=== PATIENT | female | born 1955 | race Caucasian/White ===

== ENCOUNTER 2022-07-06 08:20 | Outpatient (CLI) | payer MEDICARE, SELFPAY | END 2022-07-06 08:21 | disposition home or self-care (01) | LOC: NFLDREF 07-07 09:22 | PROVIDERS: PCP Nurse Practitioner Family; Referring Provider Nurse Practitioner Family; Visit Provider Nurse Practitioner Family | DX: R19.7 Diarrhea, unspecified (principal) | CPT/HCPCS: 87338; 87493; 87505 ==

== ENCOUNTER 2022-08-08 17:34 | Outpatient (REF) | payer MEDICARE, SELFPAY ==
[2022-08-10 17:10] LABS: Immunoglobulin A 288 mg/dL (68-408)
[2022-08-11 00:24] LABS: Tissue Transglut Ab IgA 2 U/mL (0-3)
== END 2022-08-08 17:35 | disposition home or self-care (01) ==
LOC: NPINS 17:34
PROVIDERS: Internal Medicine Gastroenterology; PCP Nurse Practitioner Family
DX: R19.7 Diarrhea, unspecified (principal)
CPT/HCPCS: 82784; 84439; 84443; 84481; 86364

== ENCOUNTER 2022-12-13 15:07 | Outpatient (CLI) | payer MEDICARE, SELFPAY | END 2022-12-13 15:08 | disposition home or self-care (01) | PROVIDERS: PCP Nurse Practitioner Family; Visit Provider Nurse Practitioner Family | DX: E03.9 Hypothyroidism, unspecified (principal); E87.5 Hyperkalemia; R89.9 Unspecified abnormal finding in specimens from other organs, systems and tissues; I10 Essential (primary) hypertension; R19.7 Diarrhea, unspecified; F41.9 Anxiety disorder, unspecified | CPT/HCPCS: 83880; 84443; 84481 ==

== ENCOUNTER 2023-04-19 00:13 | Emergency (ER) | payer MEDICARE, SELFPAY ==
[2023-04-19 00:23] VITALS: BP 152/110; PULSE 132; RESP 20; TEMP 36.8; O2SAT 97; BMI 33.2
--- NOTE | 2023-04-19 00:56 | CT_ITS ---
Patient: OVI LICEA Facility:?[facility] RIS Patient ID:?[id number] Site Patient ID:?[id number]. Site :?[id number] Study:?CT-Abdomen/Pelvis with 83cc [id number] contrast-04/19/2023 1:50:33 AM Ordering Physician:Su Godfrey Final Report: INDICATION: Left upper quadrant pain. History of ulcerative colitis. TECHNIQUE: CT of the abdomen and pelvis acquired with 83 cc Isovue 370 IV contrast. Coronal and sagittal reconstructions. COMPARISON: None. FINDINGS: Tiny low-attenuation lesion in the left hepatic lobe is likely a cyst. Subcentimeter enhancing focus in the superior right hepatic lobe (series 2, image 18). The gallbladder, spleen, and pancreas are negative. No biliary dilation. There is a 1.5 cm right adrenal nodule and a 1.7 cm left adrenal nodule which both measure approximately 50 HU. Portal veins appear patent. There is a 3 mm obstructing stone in the proximal left ureter with moderate left hydronephrosis, delayed nephrogram, and perinephric fat stranding (series 2 image 68). Small nonobstructing left renal calyceal stones. Normal enhancement of the right kidney. No right hydronephrosis or ureteral dilation. Subcentimeter bilateral renal hypodensities are too small to characterize. There is a 0.8 cm heterogeneous exophytic lesion arising from the upper pole of the right kidney laterally which appears to contain macroscopic fat (series 4 images 81-82). This may represent a small angiomyolipoma. Underdistended urinary bladder. Hysterectomy. Small hiatal hernia. No small bowel dilation. Large amount of gas and stool in the proximal colon. Colonic diverticulosis without evidence of diverticulitis. Negative appendix. No intraperitoneal free air or fluid. No lymphadenopathy. Aortoiliac vascular calcifications. Small fat containing umbilical hernia. The lung bases are clear. Degenerative changes of the spine. Left convex lumbar curve. Minimal retrolisthesis of L1 on L2 and L2 on L3. IMPRESSION: 1. 3 mm obstructing stone in the proximal left ureter with moderate left hydronephrosis and delayed nephrogram. 2. Indeterminate bilateral adrenal nodules. These could be further evaluated with nonemergent adrenal protocol CT or MRI. 3. Subcentimeter enhancing focus in the superior right hepatic lobe. Consider nonemergent ultrasound evaluation. 4. 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 Please note that all CT scans at this facility use dose modulation, iterative reconstruction, and/or weight-based dosing when appropriate to reduce radiation dose to as low as reasonably achievable. Dictated by Michelle Garza MD @ 04/19/2023 2:07:13 AM Signed by:?Michelle Garza MD @04/19/2023 2:07:13 AM (Electronic Signature)
[2023-04-19 01:01] LABS: Lactate* 1.2 mmol/L (0.5-1.9)
--- NOTE | 2023-04-19 01:02 | ED_ITS ---
HPI - General Adult General Chief complaint: Abdominal Pain Stated complaint: left side abdominal pain under ribs Time Seen by Provider: 04/19/23 00:30 Source: patient and family Mode of arrival: ambulatory Limitations: no limitations History of Present Illness HPI narrative: 67-year-old female presents to the emergency department for evaluation of left upper quadrant abdominal pain for the past 7 hours. Started at around 5:00 p.m., gradual onset. Pain dull and achy, worsening in nature. Accompanied by nausea and vomiting. Initially, patient tried taking Pepto-Bismol and a dose of Xanax hoping that would relax her. Unfortunately she vomited the dose up within about 10 minutes. She has continued to vomit every time she tries to drink water now. Her last bowel movement was yesterday morning, normal. She does have a history of ulcerative colitis. Reports colonoscopy last September. Started taking oral budesonide yesterday because she was starting to have some GI upset in the mornings, similar to her last flare that had improved with the use of budesonide. No history of bowel obstruction. She has had a prior hysterectomy, laparoscopic 12 years ago but no other GI surgeries. No fever. No recent bloody stools. No dysuria. No back pain. No excessive alcohol use. Did not try any pain medication prior to coming to the ED as she had been vomiting and did not think she could hold it down. No prior history of similar symptoms this intense. Past medical history notable for reactive airway disease, depression and anxiety, hypothyroidism, ulcerative colitis. Home meds albuterol p.r.n., r ecently restarted oral budesonide, losartan 50 mg at bedtime, Page thyroid 60 mg once daily and venlafaxine 150 mg once daily. Allergies are to Demerol which she states just caused nausea. Social history reviewed. ROS notable for the generalized an abdominal symptoms as described above, otherwise denies times 12 systems. Related Data Home Medications Medication Instructions Recorded Confirmed budesonide 3 mg 0 mg PO 01/24/23 02/07/23 capsule,delayed,extended release Previous Rx's Medication Instructions Recorded losartan 100 mg tablet 100 mg PO QDAY #90 tabs 12/14/22 thyroid (pork) 60 mg tablet ([employer] 60 mg PO DAILY #90 tabs 12/14/22 Thyroid) venlafaxine 75 mg capsule,extended 150 mg (2 x 75 mg) PO DAILY #180 12/14/22 release 24 hr caps alprazolam 0.5 mg tablet 0.5 mg PO QDAY PRN anxiety #10 tabs 02/05/23 albuterol sulfate 90 mcg/actuation 2 puff inhalation Q4-6H PRN 02/07/23 aerosol inhaler shortness of breath or wheezing #6.7 grams Allergies Allergy/AdvReac Type Severity Reaction Status Date / Time amantadine Allergy Unknown hyperness Verified 04/19/23 00:21 meperidine [From Demerol] Allergy Unknown Verified 04/19/23 00:21 [facility] Medical History Hyperkalemia ?E87.5 - Hyperkalemia (ICD-10) Depression ?F32.A - Depression, unspecified (ICD-10) Anxiety ?F41.9 - Anxiety disorder, unspecified (ICD-10) Hypertension ?I10 - Essential (primary) hypertension (ICD-10) Surgical History Status post total abdominal hysterectomy and bilateral salpingo-oophorectomy ?Z90.710 - Acquired absence of both cervix and uterus (ICD-10) ?Z90.722 - Acquired absence of ovaries, bilateral (ICD-10) ?Z90.79 - Acquired absence of other genital organ(s) (ICD-10) History of lumbar discectomy ?Z98.890 - Other specified postprocedural states (ICD-10) Hx of colonoscopy ?Z98.890 - Other specified postprocedural states (ICD-10) History of hysterectomy ?Z90.710 - Acquired absence of both cervix and uterus (ICD-10) Social History Smoking Status: Former smoker How often do you have a drink containing alcohol: never AUDIT-C Alcohol total score: 0 Non-prescribed substance use: denies use Little interest or pleasure in doing things: nearly every day Feeling down, depressed, or hopeless: nearly every day Exam Const: Vital Signs, click to edit/add: Vital Signs - 24 hr 04/19/23 00:23 Temperature 98.3 F Pulse Rate [Pulse Oximeter] 132 H Respiratory Rate 20 Blood Pressure [Ri ght Upper Arm] 152/110 H Pulse Oximetry 97 Oxygen Delivery Me thod Room Air Documenting provider has reviewed patient's vital signs: yes Common normals: alert Orientation/consciousness: Yes awake Other: Mild distress but cooperative. Excellent historian. HENMT: Common normals: normocephalic Head and scalp: normocephalic Face and sinus: normal facial exam Mouth: oral and palatal mucosa normal Throat: posterior oropharynx normal Eye: Common normals: conjunctivae normal General eye: normal appearance of both eyes Conjunctiva: conjunctiva(e) normal Neck & C-Spine: Common normals: full ROM and no lymphadenopathy Resp: Common normals: normal respiratory effort, no use of accessory muscles and clear to auscultation bilaterally Effort & inspection: able to speak in complete sentences Auscultation: clear to auscultation bilaterally Cardio: Common normals: regular rate, regular rhythm, S1 normal heart sound, S2 normal heart sound and no murmurs Rate: regular rate Rhythm: regular rhythm Heart sounds: S1 normal and S2 normal GI: Other: Abdomen does seem slightly distended. Bowel sounds are hypoactive throughout. She is diffusely tender throughout for me, it does not really localize in the left upper quadrant. Maybe a little more so in the epigastrium. No obvious mass. No signs of hernia. Liver and spleen do not seem enlarged. : Common normals: no CVA tenderness Bladder/kidney exam: no CVA tenderness Back & Pelvis: Common normals: no CVA tenderness Thoracic spine/upper back: normal to inspection Extremity: Common normals: normal to inspection, normal capillary refill and no pedal edema Neuro: Common normals: moves all extremities and no focal motor deficits Sensorium/orientation: awake and alert Speech: speech normal Psych: Common normals: thought process normal Activity/motor behavior: appropriate eye contact Thought process: normal thought process Insight: insight good Judgement: judgment good Skin: Common normals: no rashes or lesions noted General skin exam: no rash es or lesions noted Course Course ED Course: 5 hours of nausea and vomiting with left-sided abdominal pain and history of ulcerative colitis with some underlying history of recent early flare. Differential diagnosis includes ulcerative colitis, bowel perforation, volvulus, colitis, gastritis, pancreatitis, bowel obstruction, viral process, ischemia, among others. Recommend basic labs, CT scan of the abdomen and pelvis, 0.5 mg of Dilaudid and 1 L of normal saline with 4 mg of Zofran, await findings. Reevaluation(s) Time of Reevaluation #1: 02:20 Reevaluation #1: That a lot of help temporarily but pain returned, was given Toradol. I re- evaluate patient about 10 minutes after the Toradol and she reports the pain is doing much better. CT findings reviewed with patient, 3 mm ureteral stone noted. There is a little bit of hydronephrosis associated with this but nothing severe. Her creatinine looks good. She does white count. This could be from a lot of things. It could be from recently restarting her steroids with some marginalization. It could be from the early Crohn's flare that she is known to be experiencing. It could potentially be a sign of a urine infection. I am still waiting on her urinalysis. I will culture her urine. Patient will finish her IV fluids. She will receive a single dose of Flomax to help with spasm and ureteral dilation potentially. Counseled on drinking lots of fluids. Counseled on alarm symptoms of infection, low threshold for coming back to the ED. prescriptions for Toradol and Zofran given. Alarm symptoms reviewed. All questions answered. Time of Reevaluation #2: 03:18 Reevaluation #2: Urinalysis reviewed, not suspicious for infection. I do not think I am going to start her on empiric antibiotics. Alarm symptoms reviewed. See rationale above. Vital Signs Vital signs: Initial Vital Signs Temperature 98.3 F 04/19/23 00:23 Temperature Source Temporal Artery Scan 04/19/23 00:23 Pulse Rate 132 H 04/19/23 00:23 Pulse Rhythm Regular 04/19/23 00:23 Pulse Strength 3+ Normal 04/19/23 00:23 Respiratory Rate 20 04/19/23 00:23 Blood Pressure 152/110 H 04/19/23 00:23 Blood Pressure Mean 124 H 04/19/23 00:23 Pulse Oximetry 97 04/19/23 00:23 Oxygen Delivery Method Room Air 04/19/23 00:23 Vital Signs Temperature 98.3 F 04/19/23 00:23 Pulse Rate 132 H 04/19/23 00:23 Respiratory Rate 20 04/19/23 00:23 Blood Pressure 152/110 H 04/19/23 00:23 Pulse Oximetry 97 04/19/23 00:23 Oxygen Delivery Method Room Air 04/19/23 00:23 Temperature 98.3 F 04/19/23 00:23 Pulse Rate 132 H 04/19/23 00:23 Respiratory Rate 20 04/19/23 00:23 Blood Pressure 152/110 H 04/19/23 00:23 Pulse Oximetry 97 04/19/23 00:23 Oxygen Delivery Method Room Air 04/19/23 00:23 Medications Administered Medications: Generic Name Dose Route Start Last Admin Trade Name Freq PRN Reason Stop Dose Admin Hydrocodone Bitart/Acetaminophen 1 tab 04/19/23 02:23 04/19/23 02:32 Hydrocodone-Acetamin 5-325 Mg 1 Tab PO 04/19/23 02:24 1 tab ONCE ONE Administration Ketorolac Tromethamine 15 mg 04/19/23 01:42 04/19/23 01:45 Ketorolac 15 Mg/Ml Inj IVP 04/19/23 01:43 15 mg ONCE ONE Administration Tamsulosin HCl 0.4 mg 04/19/23 02:24 04/19/23 02:32 Tamsulosin Hcl 0.4 Mg Capsule PO 04/19/23 02:25 0.4 mg ONCE ONE Administration Discontinued Medications Generic Name Dose Route Start Last Admin Trade Name Freq PRN Reason Stop Dose Admin Hydromorphone HCl 0.5 mg 04/19/23 00:54 04/19/23 01:03 Hydromorphone 0.5 Mg/0.5 Ml Inj IVP 04/19/23 00:55 0.5 mg ONCE ONE Administration Sodium Chloride 1,000 mls @ 1,000 mls/hr 04/19/23 00:56 04/19/23 02:56 0.9 % Sodium Chloride 1000 Ml IV 04/19/23 01:55 Infused .Q1H PITA Infusion Ondansetron HCl 4 mg 04/19/23 00:54 04/19/23 01:03 Ondansetron 2 Mg/Ml Inj IVP 04/19/23 00:55 4 mg ONCE ONE Administration Medical Decision Making Lab Data Lab results reviewed: Yes I reviewed the patient's lab results Lab results narrative: White count of uncertain etiology. CRP is normal. Urinalysis is not suspicious for infection. Labs: Lab Results 04/19/23 04/19/23 Range/Units 00:50 02:59 WBC 15.93 H (4.50-11.00) K/uL RBC 4.83 (4.00-5.20) m/uL Hgb 14.2 (12.0-16.0) gm/dL Hct 43.7 (33.0-51.0) % MCV 91 (80-100) fL MCH 29 (26-34) pg MCHC 33 (32-36) gm/dL RDW Coeff of Jamie 13.0 (11.5-15.5) % Plt Count 405 (140-440) K/uL Neut % (Auto) 86.8 H (42.0-72.0) % Lymph % (Auto) 7.1 L (20-44) % [place] % (Auto) 4.3 (0.0-11.0) % Eos % (Auto) 0.1 (0.0-7.0) % Baso % (Auto) 0.3 (0.0-3.0) % Neut # (Auto) 13.80 H (1.7-7.0) K/uL Lymph # (Auto) 1.10 (0.90-2.90) K/uL [place] # (Auto) 0.70 (0.00-0.90) K/UL Eos # (Auto) 0.00 (0.00-0.50) K/uL Baso # (Auto) 0.00 (0.00-0.30) K/uL Abs Immat Gran (auto) 0.20 (0.00-0.30) K/uL Imm/Tot Granulo (auto) 1.4 % Sodium 139 (135-149) mmol/L Potassium 4.2 (3.6-5.1) mmol/L Chloride 106 (96-114) mmol/L Carbon Dioxide 27 (20-32) mmol/L Anion Gap 6 L (7-15) mEq/L BUN 23 (7-30) mg/dL Creatinine 0.8 (0.5-1.5) mg/dL Estimated Creat Clear 39.75 Estimated GFR 81 ml/min Glucose 142 H (60-115) mg/dL Lactate 1.2 (0.5-1.9) mmol/L Calcium 9.7 (8.4-10.6) mg/dL Total Bilirubin 0.7 (0.1-1.5) mg/dL AST 27 (12-35) U/L ALT 23 (4-35) U/L Alkaline Phosphatase 83 (40-150) U/L C-Reactive Protein < 0.5 L (0.5-1.0) mg/dL Total Protein 7.8 (6.0-8.3) g/dL Albumin 4.4 (3.3-5.0) g/dL Lipase 44 (23-300) U/L Urine Color Yellow (Yellow) Urine Appearance Cloudy A (Clear) Urine pH 5.5 (5.0-8.5) Ur Specific [place] 1.020 (1.000-1.030) Urine Protein 2+ A (Negative) Urine Glucose (UA) Negative (Negative) Urine Ketones 2+ A (Negative) Urine Blood 3+ A (Negative) Urine Nitrite Negative (Negative) Urine Bilirubin Negative (Negative) Urine Urobilinogen 0.2 (0.2-1.0) Ur Leukocyte Esterase Negative (Negative) Urine RBC 50-100 A (0-2) Urine WBC 5-10 A (0-5) Ur Squamous Epith Cells Few (None-Few) Urine Bacteria Moderate A (None) Imaging Data CT scan - abdomen: Attestation: I have reviewed the pertinent imaging results. My impression: Gas but no obstruction. I do not see any abscess or free air. Nonobstructing stone mid ureter left side Radiologist's impression: IMPRESSION: 1. 3 mm obstructing stone in the proximal left ureter with moderate left hydronephrosis and delayed nephrogram. 2. Indeterminate bilateral adrenal nodules. These could be further evaluated with nonemergent adrenal protocol CT or MRI. 3. Subcentimeter enhancing focus in the superior right hepatic lobe. Consider nonemergent ultrasound evaluation. 4. 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 Discharge Plan Discharge Clinical Impression: Left ureteral stone Patient Disposition: Home w/ Parent or Adult Condition: Improved Instructions: Ureteral Stones (ED) Additional Instructions: As we discussed, your white blood cell count is mildly elevated. I think this is more related to your ulcerative colitis than an infection in the urine. Nonetheless, we will culture your urine to see if there is infection. Since you do not have a fever or other symptoms of infection, it is difficult to know what to do with this information. I do worry that starting you on an antibiotic will cause even more GI upset than you are currently experiencing. This also could be an elevated white count from recently restarting your steroids, this is not an uncommon phenomenon. If you start to have fever, weakness or other symptoms of infection, please come back to the emergency department right away. Your kidney stone is 3 mm, located in the mid left abdomen. This will continue to travel to your bladder and should pass with no difficulty. Will give you a urine strainer so that you will have some idea of what you are passing. Expected to look like grainy sand. Stones often break apart before they are passed. For pain, I have given you a prescription for Toradol. That is the 2nd medicine that I gave you here in the emergency department that was more effective for you. The pain often comes in large waves. It may be difficult to eliminate this completely. Use the Toradol 1 tablet up to every 6 hours as needed for pain. You may also use Tylenol 1000 mg every 6 hours. I have given you a supply of Zofran, and anti nausea medication to use as well. It is important that you drink lots of fluids. It is okay if you do not tolerate solid food for a few days. Your given a dose of Flomax here in the emergency department to help dilate open the ureter as well and reduce spasm. The stone will likely pass within a week. The pain will likely move down more towards the pelvis in the next day or 2. Activity Level: No Restrictions Discharge Diet: Regular Prescriptions: No Action budesonide 3 mg capsule,delayed,extend.release 0 mg PO albuterol sulfate 90 mcg/actuation HFA aerosol inhaler 2 puff inhalation Q4-6H PRN (Reason: shortness of breath or wheezing) Qty: 6.7 3RF [employer] Thyroid 60 mg tablet 60 mg PO DAILY Qty: 90 3RF losartan 100 mg tablet 100 mg PO QDAY Qty: 90 3RF venlafaxine 75 mg capsule,extended release 24hr 150 mg PO DAILY Qty: 180 3RF alprazolam 0.5 mg tablet 0.5 mg PO QDAY PRN (Reason: anxiety) Qty: 10 0RF Follow Up/Referrals: Yanni Argueta, [employer] [Primary Care Provider] - Stand Alone Forms: [employer] Info Instructions
[2023-04-19 01:03] LABS: Basophils Percent Auto 0.3 % (0.0-3.0); Eosinophils Percent Auto 0.1 % (0.0-7.0); Hematocrit 43.7 % (33.0-51.0); Hemoglobin* 14.2 gm/dL (12.0-16.0); Immature Granulocytes Pct Auto 1.4 %; Lymphocytes Percent Auto 7.1 % (20-44); Mean Corpuscular HGB Conc 33 gm/dL (32-36); Mean Corpuscular Hemoglobin 29 pg (26-34); Mean Corpuscular Volume 91 fL (80-100); Monocytes Percent Auto 4.3 % (0.0-11.0); Neutrophils Percent Auto 86.8 % (42.0-72.0); Platelet Count* 405 K/uL (140-440); Red Blood Count 4.83 m/uL (4.00-5.20); White Blood Count* 15.93 K/uL (4.50-11.00)
[2023-04-19] MEDS: HYDROmorphone 0.5 mg/0.5 ml inj IVP (01:03)
[2023-04-19] MEDS: 0.9 % SODIUM CHLORIDE 1000 ml 1,000 ML IV (01:03)
[2023-04-19] MEDS: ONDANSETRON 2 MG/ML inj 4 MG IVP (01:03)
[2023-04-19 01:05] LABS: Slide Review Reflex No
[2023-04-19 01:08] LABS: Albumin* 4.4 g/dL (3.3-5.0); Chloride* 106 mmol/L (96-114)
[2023-04-19 01:09] LABS: Potassium* 4.2 mmol/L (3.6-5.1); Sodium* 139 mmol/L (135-149)
[2023-04-19 01:11] LABS: Creatinine* 0.8 mg/dL (0.5-1.5); Est. Creatinine Clearance* 39.75; Estimated Glomerular Filt Rate 81 ml/min
[2023-04-19 01:12] LABS: Alanine Aminotransferase* 23 U/L (4-35); Alkaline Phosphatase* 83 U/L (40-150); Anion Gap 6 mEq/L (7-15); Aspartate Amino Transferase* 27 U/L (12-35); Bilirubin Total* 0.7 mg/dL (0.1-1.5); Blood Urea Nitrogen* 23 mg/dL (7-30); Calcium* 9.7 mg/dL (8.4-10.6); Carbon Dioxide* 27 mmol/L (20-32); Glucose* 142 mg/dL (60-115); Lipase* 44 U/L (23-300); Total Protein* 7.8 g/dL (6.0-8.3)
[2023-04-19 01:15] LABS: C Reactive Protein* < 0.5 mg/dL (0.5-1.0)
[2023-04-19] MEDS: KETOROLAC 15 MG/ML inj IVP (01:45)
[2023-04-19] MEDS: HYDROCODONE-ACETAMIN 5-325 MG 1 TAB PO (02:32)
[2023-04-19] MEDS: TAMSULOSIN HCL 0.4 MG CAPSULE PO (02:32)
[2023-04-19 03:06] LABS: Appearance Urine Cloudy (Clear); Bilirubin Urine Negative (Negative); Blood Urine 3+ (Negative); Color Urine Yellow (Yellow); Glucose Urine Negative (Negative); Ketones Urine 2+ (Negative); Leukocyte Esterase Urine Negative (Negative); Nitrite Urine Negative (Negative); Protein Urine 2+ (Negative); Urobilinogen Urine 0.2 (0.2-1.0); pH Urine 5.5 (5.0-8.5)
[2023-04-19 03:15] LABS: Bacteria Urine Moderate; RBC Urine 50-100 (0-2); Squamous Epithelial Cell Urine Few (None-Few)
== END 2023-04-19 03:27 | disposition home or self-care (01) ==
PROVIDERS: Emergency Provider Family Medicine; PCP Nurse Practitioner Family
DX: N20.1 Calculus of ureter (principal)
CPT/HCPCS: 36415; 74177; 80053; 81001; 81003; 83605; 83690; 85025; 86140; 87086; 96361; 96374; 96375; 99284; 99285; A9270; J1170; J1885; J2405; J7030; Q9967

== ENCOUNTER 2023-06-06 12:24 | Outpatient (CLI) | payer MEDICARE, SELFPAY ==
--- OUTSIDE RECORDS SUMMARY | 2023-06-06 12:30 | XMS_ITS | Clinical Summary ---
Author Name Unknown Organization [employer] [facility] Address [place], [place] [address] Care Team Providers Care Pace Analyst Name Role Phone Pcp, No Primary Care Provider Unavailabl e Allergies Active Allergy Reactions Criticality Noted Date Comments Meperidine Vomiting 01/30/2019 Latex Rash 05/04/2020 Medications Medication Sig Dispensed Refills Start Date End Date Status azelaic acid (FINACEA) 15 % topical gelIndications:Rosace a Apply topically to affected area(s) 2 times daily. 50 g 2 06/30/2020 Active clindamycin 1% (CLEOCIN-T) 1 % lotionIndications:Ros acea Apply topically to affected area(s) 2 times daily. 1 Bottle 06/30/2020 Active thyroid (CHEMICAL DEPENDENCY COUNSELOR Thyroid) 60 mg tabletIndications:Hyp othyroidism, unspecified type Take 1 Tablet (60 mg) by mouth once daily. 90 Tablet 05/02/2022 Active ALPRAZolam (XANAX) 0.25 mg tabletIndications:Anx iety TAKE 1 TABLET(0.25 MG) BY MOUTH EVERY 8 HOURS NEEDED FOR ANXIETY 10 Tablet 06/05/2022 Active ondansetron (ZOFRAN ODT) 4 mg disintegrating tabletIndications:[place] [address] 1 Tablet (4 mg) on the tongue every 8 hours if needed for Nausea/Vomiting. 15 Tablet 06/07/2022 Active busPIRone (BUSPAR) 5 mg tabletIndications:Anx iety Take 1 Tablet (5 mg) by mouth two times daily. May increase the dose to 10 mg twice daily after one week if tolerated. 120 Tablet 2 06/14/2022 Active venlafaxine (EFFEXOR XR) 75 mg cp24 Extended-Release capsuleIndications:An xiety,Depression, recurrent (HC) TAKE 1 CAPSULE BY MOUTH ONCE DAILY WITH A MEAL. DOSE DECREASE 06/15/22 90 Capsule 11/02/2022 Active Active Problems Problem Noted Date Diagnosed Date Depression, recurrent 01/30/2019 Hypothyroidism HTN (hypertension) Immunizations Name Administration Dates Next Due Tdap 12/15/2019,02/11/2010 Family History Medical History Relation Name Comments Atrial fibrillation Brother Stroke Father Atrial fibrillation Mother COPD Mother Heart failure Mother Thyroid Disease Mother Cancer-breast Paternal Grandmother Good Health Sister Relation Name Status Comments Brother Alive Father Mother Paternal Grandmother Sister Alive Social History Tobacco Use Types Packs/Day Years Used Date Smoking Tobacco: Former Cigarettes Q uit: 01/30/2013 Smokeless Tobacco: Never Tobacco Cessation:Counseling Given: Yes Alcohol Use Standard Drinks/Week Comments Yes 0 (1 standard drink = 0.6 oz pur e alcohol) PHQ-2 Answer Date Recorded PHQ-2 TOTAL SCORE 4 06/14/2022 Social Connections Answer Date Recorded Frequency of Communication with Friends and Fami ly 0 06/07/2022 Financial Resource Strain Answer Date R ecorded Difficulty of Paying Living Expenses 3 06/07/2022 Difficulty of Paying Living Expenses Not on file 06/07/2022 Food Insecurity Answer Date Recorded Worried About Running Out of Food in the Last Ye ar 1 06/07/2022 Transportation Needs Answer Date Record ed Lack of Transportation (Medical) 1 06/07/2022 Housing Stability Answer Date Recorded Unable to Pay for Housing in the Last Year 1 06/07/2022 Sex and Gender Information Value Date Recorded Sex Assigned at Female 10/03/2019 12:45 PM CDT Gender Identity Female 10/03/2019 12:45 PM CDT Sexual Orientation Straight 10/03/2019 12 :45 PM CDT Obstetrics History Para Term AB IAB SAB Ectopic Multiple Livin g Live Births 0 0 0 0 0 0 0 0 0 0 0 Last Filed Vital Signs Vital Sign Reading Time Taken Comments Blood Pressure 135/85 06/14/2022 12:05 PM CDT Pulse 91 06/14/2022 12:05 PM CDT Temperature 36.8 ??C (98.2 ??F) 06/07/2022 12:11 PM C DT Respiratory Rate 20 06/07/2022 12:11 PM CDT Oxygen Saturation 96% 06/14/2022 12:05 PM CDT Inhaled Oxygen Concentration - - Weight 75.3 kg (166 lb) 06/14/2022 12:05 PM CDT Height 150.7 cm (4' 11.33) 06/14/2022 12:05 PM CDT Body Mass Index 33.15 06/14/2022 12:05 PM CDT Plan of Treatment Health Maintenance Due Date Last Done Comments Zoster (shingles) series for age 50+ (1 of 2) 2006 Mammogram for age 45-75 02/20/2020 02/19/2019 DEXA/DXA scan for age 65+ 2021 Pneumococcal series for age 65+ (1 of 1 - PCV) 2021 COVID-19 vaccine series ( - 2022- season) 2022 Medicare Wellness for age 65+ 11/29/2022 11/28/2021 BMI (ht and wt on same day) for age 18+ 06/15/2023 06/14/2022, 11/28/2021, 04/18/2021, Additional history exists Depression screening for age 12+ 06/15/2023 06/14/2022, 11/28/2021, 04/18/2021, Additional history exists Influenza for age 65+ 10/13/2023 Lipids for age 45-75 11/28/2026 11/28/2021, 04/18/2021, 12/15/2019, Additional history exists Colonoscopy through age 75 02/11/202702/11 [facility] Tetanus booster 12/14/2029 12/15/2019, 02/11/2010 Hepatitis C screening for ag e 18-79 Completed 01/30/2019 Tdap Completed 12/15/2019, 02/11/2010 Procedures Procedure Name Priority Date/Time Associated Diagnosis Comments LIPID PANEL W REFLEX MEASURED LDL Routine 11/28/2021 11:10 AM CDT Screening for lipid disorders XR MAMMO PINEDA BILAT SCREEN Routine 02/19/2019 9:54 AM TRAFFIC SIGN ERECTION SUPERVISOR Visit for screening mammogram ANTI HCV Routine 01/30/2019 9:06 AM TRAFFIC SIGN ERECTION SUPERVISOR Need for hepatitis C screening test from Last 3 Months or Most Recently Relevant to Health Maintenance Results * (ABNORMAL) LIPID PANEL W REFLEX MEASURED LDL (11/28/2021 11:10 AM CDT) CHOLESTEROL,TOTAL 255(H) 100 - 199 mg/dL 11/29/2021 5:25 AM CDT [facility] TRIGLYCERIDES 113 <150 mg/dL 11/29/2021 5:25 AM CDT [facility] HDL CHOLESTEROL 52 >40 mg/dL 5:25 AM CDT [facility] NON-HDL CHOLESTEROL 203(H) <145 mg/dl 11/29/2021 5:25 AM CDT [facility] CHOL/HDL RATIO 4.90(H) <4.50 11/29/2021 5:25 AM CDT [facility] LDL CHOLESTEROL 180(H) <=130 mg/dL 11/29/2021 5:25 AM CDT [facility] VLDL CHOLESTEROL 23 <=30 mg/dL 11/29/2021 5:25 AM CDT [facility] PROVIDER ORDERED STATUS RANDOM 11/29/2021 5:25 AM CDT [facility] Blood BLOOD SPECIMEN / Unknown Venipuncture / Unknown 11/28/2021 11:10 AM CDT 11/28/2021 11:10 AM CDT Ruba DAVIS CHEMISTRY [facility] [address] [place] [address], [place] * XR MAMMO PINEDA BILAT SCREEN (02/19/2019 9:54 AM TRAFFIC SIGN ERECTION SUPERVISOR) Anatomical Region Laterality Modality BREASTS, Breast Left, Breast Right Bilateral Mammography Impressions 03/10/2019 1:18 PM TRAFFIC SIGN ERECTION SUPERVISOR ??There is no radiographic evidence for malignancy. ??Recommend annual mammograms. A lay language report of this examination will be provided to the patient. MAMMOGRAM ASSESSMENT: ??ACR 2 Benign Narrative 03/10/2019 1:18 PM TRAFFIC SIGN ERECTION SUPERVISOR XR MAMMO PINEDA BILAT SCREEN [[id number]] CLINICAL HISTORY: ??This is an asymptomatic 63 y.o. patient. INDICATION FOR EXAM: Mammogram Screening. TECHNIQUE: CC & MLO views were obtained. ??This digital study was evaluated with the assistance of Computer-Aided Detection. Breast Tomosynthesis was used in interpretation. COMPARISON FILMS: Previous outside mammograms from [facility] in [place], [place] Dated 01/21/2015, 01/01/2014, 01/01/2012, 07/13/2010, 07/08/2007. FINDINGS: ??Mammographically, the breast tissue has scattered fibroglandular densities. ??No suspicious masses or microcalcifications. ?? Benign appearing calcifications within both breasts and Intramammary lymph node within left breast. Ruba DAVIS MAMMO * ANTI HCV (01/30/2019 9:06 AM TRAFFIC SIGN ERECTION SUPERVISOR) HEPATITIS C ANTIBODY Non-React da Non-React da 01/30/2019 2:10 PM TRAFFIC SIGN ERECTION SUPERVISOR [facility] Comment:Antibodies to HCV no t detected; does not exclude the possibility of exposure to HCV. Blood BLOOD SPECIMEN / Unknown Venipuncture / Unknown 01/30/2019 9:06 AM TRAFFIC SIGN ERECTION SUPERVISOR 01/30/2019 9:06 AM TRAFFIC SIGN ERECTION SUPERVISOR Ruba DAVIS SEND OUTS [facility] [address] [place] [address], from Last 3 Months or Most Recently Relevant to Health Maintenance Care Teams Pace Analyst Relationship Specialty Start Date End Date Pcp, No . PCP - General 01/02/23
== END 2023-06-06 12:25 | disposition home or self-care (01) ==
PROVIDERS: PCP Nurse Practitioner Family; Visit Provider Nurse Practitioner Family
DX: E03.9 Hypothyroidism, unspecified (principal)
CPT/HCPCS: 84439; 84443; 84481

== ENCOUNTER 2024-03-06 10:25 | Emergency (ER) | payer MEDICARE, SELFPAY ==
[2024-03-06 10:41] VITALS: BP 138/83; PULSE 92; RESP 20; TEMP 36.1; O2SAT 95; BMI 34.2
--- NOTE | 2024-03-06 10:45 | CRLHL7_ITS ---
For Patients: As a result of the Cures Act, medical imaging exams and procedure reports are released immediately into your electronic medical record. You may view this report before your referring provider. If you have questions, please contact your health care provider. Indication: Shortness of breath, cough and fever Comparison: Two-view chest August 26, 2018 Technique: PA and lateral views of the chest Findings: There is chronic interstitial change again seen throughout the bilateral hemithoraces. Stable calcified granuloma in the middle lobe. No dense consolidation, effusion or pneumothorax. The cardiomediastinal silhouette is within normal limits. The bony thorax is grossly intact. Impression: Stable chronic interstitial changes without evidence of dense consolidation. Dictated by Navid Bach MD @ 03/06/2024 11:14:51 AM (Electronically Signed)
[2024-03-06 12:24] LABS: Basophils Absolute Auto 0.02 K/uL (0.00-0.30); Basophils Percent Auto 0.4 % (0.0-3.0); Eosinophils Absolute Auto 0.04 K/uL (0.00-0.50); Eosinophils Percent Auto 0.8 % (0.0-7.0); Hematocrit 47.4 % (33.0-51.0); Hemoglobin* 15.2 gm/dL (12.0-16.0); Lymphocytes Absolute Auto 1.56 K/uL (0.90-2.90); Lymphocytes Percent Auto 31.1 % (20-44); Mean Corpuscular HGB Conc 32 gm/dL (32-36); Mean Corpuscular Hemoglobin 30 pg (26-34); Mean Corpuscular Volume 92 fL (80-100); Neutrophils Absolute Auto 3.04 K/uL (1.7-7.0); Neutrophils Percent Auto 60.7 % (42.0-72.0); Platelet Count* 232 K/uL (140-440); RDW Coefficient of Variation % 13.2 % (11.5-15.5); Red Blood Count 5.16 m/uL (4.00-5.20); White Blood Count* 5.01 K/uL (4.50-11.00)
[2024-03-06 12:31] LABS: Slide Review Reflex No
--- OUTSIDE RECORDS SUMMARY | 2024-03-06 12:37 | XMS_ITS | Clinical Summary ---
Author Organization [employer] [facility] [employer] [facility] Address [place], [place] [address] Care Team Providers Care Filtration Supervisor Name Role Phone Pcp, No Primary Care Provider Unavailabl e Allergies Active Allergy Reactions Criticality Noted Date Comments Meperidine Vomiting 01/30/2019 Hydromorphone Headache 08/14/2023 Made me feel awful Latex Rash 05/04/2020 Medications azelaic acid (FINACEA) 15 % topical gelIndications:R osacea Apply topically to affected area(s) 2 times daily. 50 g 2 1 Active clindamycin 1% (CLEOCIN-T) 1 % lotionIndication s:Rosacea Apply topically to affected area(s) 2 times daily. 1 Bottle 1 Active thyroid (PROCESS EXPERT Thyroid) 60 mg tabletIndication s:Hypothyroidism , unspecified type Take 1 Tablet (60 mg) by mouth once daily. 90 Tablet 3 Active ALPRAZolam (XANAX) 0.25 mg tabletIndication s:Anxiety TAKE 1 TABLET(0.25 MG) BY MOUTH EVERY 8 HOURS NEEDED FOR ANXIETY 10 Tablet 3 Active Additional Information Patient taking differently: 0.5 mgOralEACH TIME PRN, Reported on 08/14/2023 venlafaxine (EFFEXOR XR) 75 mg cp24 Extended-Release capsuleIndicatio ns:Anxiety,Depre ssion, recurrent (HC) TAKE 1 CAPSULE BY MOUTH ONCE DAILY WITH A MEAL. DOSE DECREASE 06/15/22 90 Capsule 3 Active Additional Information Patient taking differently: 150 mgOralDAILY WITH MEAL, Reported on 08/14/2023 medication order composer Issa Vitamin C (as ascorbic acid) 1,000 mg with Shannan Hips 4:1 15 mg - 1 daily Luis Manuel Vitamin D3 (as cholecalciferol ) 5,000 IU - 1 daily Luis Manuel Triple Magnesium Complex (magnesium oxide, magnesium citrate, magnesium aspartate - 1 daily 4 Active budesonide (ENTOCORT EC) 3 mg capsule Take 3 mg by mouth. Every other day 4 Active progesterone micronized (PROMETRIUM) 100 mg capsule Take 100 mg by mouth at bedtime. 4 Active losartan (COZAAR) 100 mg tablet Take 100 mg by mouth once daily. Active estradiol 0.025 mg/24 hr SEMIWEEKLY patchIndications :Menopause syndrome Apply 1 Patch on dry, clean, hairless skin every Saturday and . 8 Patch 11 4 Active thyroid, pork, (PROCESS EXPERT Thyroid) 15 mg tabletIndication s:Hypothyroidism , unspecified type Take 1 Tablet (15 mg) by mouth once daily. 60 Tablet 2 4 Active Active Problems Problem Noted Date Diagnosed Date Menopausal state 12/10/2023 Anxiety 08/14/2023 Depression, recurrent 01/30/2019 Hypothyroidism HTN (hypertension) Encounters Date Type Department Care Team Description 12/25/2023 9:30 AM DESKTOP SUPPORT ENGINEER Orders Only [facility] [address] [place] [address] Lab, [place] Lab 12/25/2023 Travel 12/20/2023 Travel 12/09/2023 Telephone [facility] [address] [place] [address] [address] [place] [address] Sven Peck MD Lab (ORDERS) from Last 3 Months Immunizations Name Administration Dates Next Due Tdap [...] 01/30/2013 Smokeless Tobacco: Never Tobacco Cessation:Counseling Given: Not Answered Alcohol Use Standard Drinks/Week Comments Yes 0 (1 standard drink = 0.6 oz pur e alcohol) rarely PHQ-2 Answer Date Recorded PHQ-2 TOTAL SCORE 4 06/14/2022 Social Connections Answer Date Recorded Do you often feel lonely or isolated from those around you? 4 08/10/2023 Financial Resource Strain Answer Date R ecorded Difficulty of Paying Living Expenses 3 08/10/2023 Difficulty of Paying Living Expenses Not on file 08/10/2023 Food Insecurity Answer Date Recorded Do you worry your food will run out before you are able to buy more? 1 08/10/2023 Transportation Needs Answer Date Record ed Does lack of transportation keep you from medica l appointments? 1 08/10/2023 Does lack of transportation keep you from work, meetings or getting things that you need? 1 08/10/2023 Housing Stability Answer Date Recorded What is your housing situation today? 1 08/10/2023 Utilities Answer Date Recorded Do you have trouble paying f or utilities (for example, heat, electricity, water, phone)? 1 08/10/2023 Comments No Sex and Gender Information Value Date Recorded Sex Assigned at Female 10/03/2019 12:45 PM CDT Legal Sex Female 3:19 PM CDT Gender Identity Female 10/03/2019 12:45 [...] 91 06/14/2022 12:05 PM CDT Temperature 36.8 C (98.2 F) 06/07/2022 12:11 PM CDT Respiratory Rate 20 06/07/2022 12:11 PM CDT Oxygen Saturation 96% 06/14/2022 12:05 PM CDT Inhaled Oxygen Concentration - - Weight 75.3 kg (166 lb) 06/14/2022 12:05 PM CDT Height 150.7 cm (4' 11.33) 06/14/2022 12:05 PM CDT Body Mass Index 33.15 06/14/2022 12:05 PM CDT Plan of Treatment Health Maintenance Due Date Last Done Comments Pneumococcal series for age 50+ (1 of 1 - PCV) 2006 Zoster (shingles) series for age 50+ (1 of 2) 2006 Mammogram for age 45-75 02/20/2020 02/19/2019 DEXA/DXA scan for age 65+ 2021 Medicare Wellness for age 65+ 11/29/2022 11/28/2021 BMI (ht and wt on same day) for age 18+ 06/15/2023 06/14/2022, 11/28/2021, 04/18/2021, Additional history exists Depression screening for age 12+ 06/15/2023 06/14/2022, 11/28/2021, 04/18/2021, Additional history exists COVID-19 vaccine series ( - season) 2023 Influenza for age 65+ 10/13/2023 Lipids for age 45-75 11/28/2026 11/28/2021, 04/18/2021, 12/15/2019, Additional history exists Colonoscopy through age 75 02/11/202702/11 [facility] Tetanus booster 12/14/2029 12/15/2019, 02/11/2010 RSV vaccine for adults or (1 - 1-dose 75+ series) 11/13/2031 Hepatitis C screening for ag e 18-79 Completed 01/30/2019 Tdap Completed 12/15/2019, 02/11/2010 Procedures Procedure Name Priority Date/Time Associated Diagnosis Comments TSH Routine 12/25/2023 9:28 AM DESKTOP SUPPORT ENGINEER T4,FREE Routine 12/25/2023 9:28 AM DESKTOP SUPPORT ENGINEER Hypothyroidism, unspecified type T3,FREE Routine 12/25/2023 9:28 AM DESKTOP SUPPORT ENGINEER Hypothyroidism, unspecified type PROGESTERONE Routine 12/25/2023 9:28 AM DESKTOP SUPPORT ENGINEER Menopausal state ESTRADIOL Routine 12/25/2023 9:28 AM DESKTOP SUPPORT ENGINEER Menopausal state VITAMIN D 25 (DEFICIENCY) Routine 12/25/2023 9:28 AM DESKTOP SUPPORT ENGINEER Vitamin D deficiency LIPID PANEL W REFLEX MEASURED LDL Routine 11/28/2021 11:10 AM CDT Screening for lipid disorders XR MAMMO PINEDA BILAT SCREEN Routine 02/19/2019 9:54 AM DESKTOP SUPPORT ENGINEER Visit for screening mammogram ANTI HCV Routine 01/30/2019 9:06 AM DESKTOP SUPPORT ENGINEER Need for hepatitis C screening test from Last 3 Months or Most Recently Relevant to Health Maintenance Results * VITAMIN D 25 (DEFICIENCY) (12/25/2023 9:28 AM DESKTOP SUPPORT ENGINEER) VITAMIN D,25-OH,TOTAL,IA 76 30 - 100 ng/mL [facility] Comment: Vitamin D Status 25-OH Vitamin D: Deficiency: <20 ng/mL Insufficiency: 20 - 29 ng/mL Optimal: > or = 30 ng/mL For 25-OH Vitamin D testing on patients on D2-supplementation and patients for whom quantitation of D2 and D3 fractions is required, the Quest[facility](TM) 25-OH VIT D, (D2,D3), LC/MS/MS is recommended: order code [id number] (patients >2yrs). See Note 1 Note 1 For additional information, please refer to http://education.Toodalu/faq/UQE603 (This link is being provided for informational/ educational purposes only.) Blood BLOOD SPECIMEN / Unknown 12/25/2023 9:28 AM DESKTOP SUPPORT ENGINEER 12/25/2023 9:29 AM DESKTOP SUPPORT ENGINEER Narrative [facility] - 12/26/2023 4:05 AM DESKTOP SUPPORT ENGINEER FASTING:NO FASTING: NO us Sven Peck MD SEND OUTS Final R esult [employer] [address] [place] [address], [facility] [address] [place] [address] * (ABNORMAL) TSH (12/25/2023 9:28 AM DESKTOP SUPPORT ENGINEER) TSH 0.33(L) 0.40 - 4.50 mIU/L [facility] 12/25/2023 9:28 AM DESKTOP SUPPORT ENGINEER 12/25/2023 9:29 AM DESKTOP SUPPORT ENGINEER Narrative [facility] - 12/26/2023 4:05 AM DESKTOP SUPPORT ENGINEER FASTING:NO FASTING: NO Sven Peck MD CHEMISTRY Final R esult [facility] [address] [facility] [place] [address], [facility] [address] [place] [address] * T3,FREE (12/25/2023 9:28 AM DESKTOP SUPPORT ENGINEER) T3, FREE 2.8 2.3 - 4.2 pg/mL [facility] Blood BLOOD SPECIMEN / Unknown 12/25/2023 9:28 AM DESKTOP SUPPORT ENGINEER 12/25/2023 9:29 AM DESKTOP SUPPORT ENGINEER Narrative [facility] - 12/26/2023 4:05 AM DESKTOP SUPPORT ENGINEER FASTING:NO FASTING: NO Sven Peck MD CHEMISTRY Final R esult [facility] [address] [place] [address], [facility] [address] [place] [address] * T4,FREE (12/25/2023 9:28 AM DESKTOP SUPPORT ENGINEER) T4, FREE 0.8 0.8 - 1.8 ng/dL [facility] Blood BLOOD SPECIMEN / Unknown 12/25/2023 9:28 AM DESKTOP SUPPORT ENGINEER 12/25/2023 9:29 AM DESKTOP SUPPORT ENGINEER Narrative [facility] - 12/26/2023 4:05 AM DESKTOP SUPPORT ENGINEER FASTING:NO FASTING: NO Sven Peck MD CHEMISTRY Final R esult Performing Organization Address [facility] Co de Phone Number [employer] [facility] [address] [place] [address], [facility] [address] [place] [address] * PROGESTERONE (12/25/2023 9:28 AM DESKTOP SUPPORT ENGINEER) Pathologist [facility] PROGESTERONE 6.1 ng/mL [facility] Comment: Reference Ranges Female Follicular Phase < 1.0 Luteal Phase 2.6-21.5 Post menopausal < 0.5 1st Trimester 4.1-34.0 2nd Trimester 24.0-76.0 3rd Trimester 52.0-302.0 Blood BLOOD SPECIMEN / Unknown 12/25/2023 9:28 AM DESKTOP SUPPORT ENGINEER 12/25/2023 9:29 AM DESKTOP SUPPORT ENGINEER Narrative [facility] - 12/26/2023 4:05 AM DESKTOP SUPPORT ENGINEER FASTING:NO FASTING: NO Sven Peck MD SEND OUTS Final R esult Performing Organization Address [facility] Co de Phone Number [employer] [facility] [address] [place] [address], [facility] [address] [place] [address] * ESTRADIOL (12/25/2023 9:28 AM DESKTOP SUPPORT ENGINEER) Pathologist [facility] ESTRADIOL 27 pg/mL [facility] Comment: Reference Range Follicular Phase: 19-144 Mid-Cycle: 64-357 Luteal Phase: 56-214 Postmenopausal: < or = 31 Reference range established on post-pubertal patient population. No pre-pubertal reference range established using this assay. For any patients for whom low Estradiol levels are anticipated (e.g. males, pre-pubertal children and hypogonadal/post-menopausal females), the [facility] Estradiol, Ultrasensitive, LCMSMS assay is recommended (order code [id number]). Please note: patients being treated with the drug fulvestrant (Faslodex(R)) have demonstrated significant interference in immunoassay methods for estradiol measurement. The cross reactivity could lead to falsely elevated estradiol test results leading to an inappropriate clinical assessment of estrogen status. [facility] order code [id number], Ultrasensitive LC/MS/MS demonstrates negligible cross reactivity with fulvestrant. Blood BLOOD SPECIMEN / Unknown 12/25/2023 9:28 AM DESKTOP SUPPORT ENGINEER 12/25/2023 9:29 AM DESKTOP SUPPORT ENGINEER Narrative [facility] - 12/26/2023 4:05 AM DESKTOP SUPPORT ENGINEER FASTING:NO FASTING: NO Sven Peck MD SEND OUTS Final R esult [employer] [facility] [address] [place] [address], [facility] [address] [place] [address] * (ABNORMAL) LIPID PANEL W REFLEX MEASURED LDL (11/28/2021 11:10 AM CDT) CHOLESTEROL,TOTAL 255(H) 100 - 199 mg/dL 11/29/2021 5:25 AM CDT [facility] TRIGLYCERIDES 113 <150 mg/dL 11/29/2021 5:25 AM CDT [facility] HDL CHOLESTEROL 52 >40 mg/dL 5:25 AM T [facility] NON-HDL CHOLESTEROL 203(H) <145 mg/dl 11/29/2021 5:25 AM CDT [facility] CHOL/HDL RATIO 4.90(H) <4.50 11/29/2021 5:25 AM CDT [facility] LDL CHOLESTEROL 180(H) <=130 mg/dL 11/29/2021 5:25 AM CDT [facility] VLDL CHOLESTEROL 23 <=30 mg/dL 11/29/2021 5:25 AM CDT [facility] PROVIDER ORDERED STATUS RANDOM 11/29/2021 5:25 AM CDT [facility] Blood BLOOD SPECIMEN / Unknown Venipuncture / Unknown 11/28/2021 11:10 AM CDT 11/28/2021 11:10 AM CDT Ruba DAVIS CHEMISTRY [facility] [address] [place] [address], [place] * XR MAMMO PINEDA BILAT SCREEN (02/19/2019 9:54 AM DESKTOP SUPPORT ENGINEER) Anatomical Region Laterality Modality BREASTS, Breast Left, Breast Right Bilateral Mammography Impressions 03/10/2019 1:18 PM DESKTOP SUPPORT ENGINEER There is no radiographic evidence for malignancy. Recommend annual mammograms. A lay language report of this examination will be provided to the patient. MAMMOGRAM ASSESSMENT: ACR 2 Benign Narrative 03/10/2019 1:18 PM DESKTOP SUPPORT ENGINEER XR MAMMO PINEDA BILAT SCREEN [[id number]] CLINICAL HISTORY: This is an asymptomatic 63 y.o. patient. INDICATION FOR EXAM: Mammogram Screening. TECHNIQUE: CC & MLO views were obtained. This digital study was evaluated with the assistance of Computer-Aided Detection. Breast Tomosynthesis was used in interpretation. COMPARISON FILMS: Previous outside mammograms from [facility] in [place], [place] Dated 01/21/2015, 01/01/2014, 01/01/2012, 07/13/2010, 07/08/2007. FINDINGS: Mammographically, the breast tissue has scattered fibroglandular densities. No suspicious masses or microcalcifications. Benign appearing calcifications within both breasts and Intramammary lymph node within left breast. Ruba DAVIS MAMMO Final Resu lt * ANTI HCV (01/30/2019 9:06 AM DESKTOP SUPPORT ENGINEER) HEPATITIS C ANTIBODY Non-React da Non-React da 01/30/2019 2:10 PM DESKTOP SUPPORT ENGINEER [facility] Comment:Antibodies to HCV no t detected; does not exclude the possibility of exposure to HCV. Blood BLOOD SPECIMEN / Unknown Venipuncture / Unknown 01/30/2019 9:06 AM DESKTOP SUPPORT ENGINEER 01/30/2019 9:06 AM DESKTOP SUPPORT ENGINEER us Ruba DAVIS SEND OUTS Final Resu lt [facility] [address] [place] [address], [place] from Last 3 Months or Most Recently Relevant to Health Maintenance Insurance [facility] MEDICARE ADVANTAGE MR Care Teams Filtration Supervisor Relationship Specialty Start Date End Date Pcp, No . PCP - General 01/02/23
[2024-03-06] MEDS: IPRAT-ALBUT 0.5-2.5 MG/3 ML NEB 1 NEB IH ×2 (12:41→13:17)
[2024-03-06] MEDS: predniSONE 10 MG TABLET 50 MG PO (12:42)
[2024-03-06 12:47] LABS: PCR FLU A Negative PCR FLU A (Negative); PCR FLU B Negative PCR FLU B (Negative); PCR RSV Negative PCR RSV (Negative); SARS PCR* Negative SARS-CoV-2 (Negative)
[2024-03-06 12:55] VITALS: BP 136/78; PULSE 81; RESP 20; O2SAT 96
--- NOTE | 2024-03-06 13:08 | ED_ITS ---
HPI - General Adult General Chief complaint: Shortness of Breath/Dyspnea Stated complaint: thinks she still has pneumonia Time Seen by Provider: 03/06/24 11:45 Source: patient Mode of arrival: ambulatory Limitations: no limitations History of Present Illness HPI narrative: 68-year-old female presenting today with shortness of breath. Patient states that she developed cough, body aches on Saturday of this week, 5 days ago. She had a fever as high as 102. Then on Saturday her fever broke and she has been afebrile for the last 48 hours, however, her breathing has become more labored. She states that she has a cough that was initially productive but now is dry. She just can not seem to catch her breath. Patient is very tearful and upset that she is ill, concerned that this is happening because she moved to [place] from [place]. She does have a history of reactive airway disease for which she has an albuterol inhaler that she has been taking over the last couple of days without significant relief of her symptoms. Quit smoking 12-15 years ago. Related Data Home Medications ?Medication ?Instructions ?Recorded ?Confirmed budesonide 3 mg 0 mg PO 01/24/23 02/20/24 capsule,delayed,extended release estradiol 0.025 mg/24 hr transdermal 02/20/24 02/20/24 semiweekly transdermal patch thyroid (pork) 15 mg tablet (RESEARCH [employer] DEVELOPMENT RESEARCHER 15 mg PO QDAY 02/20/24 02/20/24 Thyroid) thyroid (pork) 60 mg tablet (RES[employer]ARCH [employer] DEVELOPMENT RESEARCHER 60 mg PO DAILY 02/20/24 Thyroid) Previous Rx's ?Medication ?Instructions ?Recorded albuterol sulfate 90 mcg/actuation 2 puff inhalation Q4-6H PRN 02/07/23 aerosol inhaler shortness of breath or wheezing #6.7 grams progesterone micronized 100 mg 100 mg PO QAM #90 caps 06/06/23 capsule losartan 100 mg tablet 100 mg PO QDAY #90 tabs 01/08/24 venlafaxine 75 mg capsule,extended 150 mg (2 x 75 mg) PO DAILY #180 02/17/24 release 24 hr caps alprazolam 0.5 mg tablet 0.5 mg PO QDAY PRN anxiety #10 tabs 02/20/24 clindamycin phosphate 1 % lotion 1 applic topical BID 10 days #60 mL 02/20/24 ipratropium 0.5 mg-albuterol 3 mg 3 ml inhalation Q6H PRN #90 mL 03/06/24 (2.5 mg base)/3 mL nebulization soln nebulizer and compressor #1 ea 03/06/24 prednisone 20 mg tablet 20 mg PO DIRECTED 9 days #18 03/06/24 tabs Allergies Allergy/AdvReac Type Severity Reaction Status Date / Time amantadine Allergy Unknown hyperness Verified 02/20/24 13:04 meperidine (From Demerol) Allergy Unknown Verified 02/20/24 13:04 hydromorphone (From Dilaudid) AdvReac Intermediate Headache Verified 02/20/24 13:04 Review of Systems Status of ROS: Reports: 10 or more systems reviewed and unremarkable except as noted in History and [facility] Lymphocytic colitis ?K52.832 - Lymphocytic colitis (ICD-10) Hyperkalemia ?E87.5 - Hyperkalemia (ICD-10) Depression ?F32.A - Depression, unspecified (ICD-10) Anxiety ?F41.9 - Anxiety disorder, unspecified (ICD-10) Hypertension ?I10 - Essential (primary) hypertension (ICD-10) Surgical History Status post total abdominal hysterectomy and bilateral salpingo-oophorectomy ?Z90.710 - Acquired absence of both cervix and uterus (ICD-10) ?Z90.722 - Acquired absence of ovaries, bilateral (ICD-10) ?Z90.79 - Acquired absence of other genital organ(s) (ICD-10) History of lumbar discectomy ?Z98.890 - Other specified postprocedural states (ICD-10) Hx of colonoscopy ?Z98.890 - Other specified postprocedural states (ICD-10) History of hysterectomy ?Z90.710 - Acquired absence of both cervix and uterus (ICD-10) Family History Mother Cardiovascular disease High blood pressure High cholesterol Thyroid disease Father High blood pressure High cholesterol Stroke Social History What is your current living situation?: I presently have a place to live Problems where you live: no known problems In the past 12 months, utilities in danger of being shut off: no In past 12 months, lack of transportation kept you from medical appts, meetings, work, or getting things needed for daily living: no In the past 12 mos, have been you worried that your food would run out before you had money to buy more?: never true In the past 12 mos, the food you bought just didn't last and you didn't have money to buy more?: never true Smoking Status: Former smoker How often do you have a drink containing alcohol: never AUDIT-C Alcohol total score: 0 Non-prescribed substance use: denies use How often does anyone, including family, friends and others, physically hurt you : never How often does anyone, including family, friends and others, insult or talk down to you: never How often does anyone, including family, friends and others, threaten you with harm: never How often does anyone, including family, friends and others, scream or curse at you: never Exam Narrative: Exam Narrative: Well-nourished well-developed patient , very tearful. Alert and oriented. Answers questions appropriately. Patient speaks in full sentences without nee ding to catch Her breath. HEENT: Normocephalic atraumatic. Pupils are equally round reactive to light. Extraocular muscles are intact. Conjunctivae are moist without any icterus noted. Moist mucous membranes. Posterior pharynx is normal. Neck is soft without any lymphadenopathy or thyromegaly. No masses are appreciated. Cardiovascular: Heart is regular rate and rhythm S1 and S2 are present without any murmurs. Lungs: patient has bilateral wheezing. Abdomen: Soft and nontender nondistended with normal bowel sounds. Extremities: Bilateral lower extremities are without edema. Skin: Well perfused without any obvious rashes. Const: Vital Signs, click to edit/add: Vital Signs - 24 hr 03/06/24 10:41 03/06/24 12:55 Temperature 96.9 F L Pulse Rate [Pulse Oximeter] 92 81 Respiratory Rate 20 20 Blood Pressure [Ri ght Upper Arm] 138/83 136/78 Pulse Oximetry 95 96 Oxygen Delivery Me thod Room Air Room Air Course Course ED Course: Patient received oral prednisone and DuoNeb while she was here which helped her symptoms a little. Therefore DuoNeb with repeated. Chest x-ray, read by me, did not show any acute pathology. Triple swab is negative. Normal CBC. Vital Signs Vital signs: Initial Vital Signs Temperature 96.9 F L 03/06/24 10:41 Temperature Source Temporal Artery Scan 03/06/24 10:41 Pulse Rate 92 03/06/24 10:41 Respiratory Rate 20 03/06/24 10:41 Blood Pressure 138/83 03/06/24 10:41 Blood Pressure Mean 101 03/06/24 10:41 Pulse Oximetry 95 03/06/24 10:41 Oxygen Delivery Method Room Air 03/06/24 10:41 Vital Signs Temperature 96.9 F L 03/06/24 10:41 Pulse Rate 92 03/06/24 10:41 Respiratory Rate 20 03/06/24 10:41 Blood Pressure 138/83 03/06/24 10:41 Pulse Oximetry 95 03/06/24 10:41 Oxygen Delivery Method Room Air 03/06/24 10:41 Temperature 96.9 F L 03/06/24 10:41 Pulse Rate 81 03/06/24 12:55 Respiratory Rate 03/06/24 12:55 Blood Pressure 136/78 03/06/24 12:55 Pulse Oximetry 96 03/06/24 12:55 Oxygen Delivery Method Room Air 03/06/24 12:55 Medications Administered Medications: Discontinued Medications Generic Name Dose Route Start Last Admin Trade Name Freq PRN Reason Stop Dose Admin Albuterol/Ipratropium 1 [facility] 03/06/24 11:59 03/06/24 12:41 Iprat-Albut 0.5-2.5 Mg/3 Ml Formerly [facility] 03/06/24 12:00 1 neb ONCE ONE Administration Albuterol/Ipratropium 1 neb 03/06/24 13:13 03/06/24 13:17 Iprat-Albut 0.5-2.5 Mg/3 Ml Formerly [facility] 03/06/24 13:14 1 neb ONCE ONE Administration Prednisone 50 mg 03/06/24 11:59 03/06/24 12:42 Prednisone 10 Mg Tablet PO 03/06/24 12:00 50 mg ONCE ONE Administration Medical Decision Making MDM Narrative Medical decision making narrative: 68-year-old female with upper respiratory infection and resulting wheezing. Patient will be sent home with a prednisone taper. Continue albuterol. Lab Data Labs: Lab Results 03/06/24 03/06/24 Range/Units 10:54 12:01 WBC 5.01 (4.50-11.00) K/uL RBC 5.16 (4.00-5.20) m/uL Hgb 15.2 (12.0-16.0) gm/dL Hct 47.4 (33.0-51.0) % MCV 92 (80-100) fL MCH 30 (26-34) pg MCHC 32 (32-36) gm/dL RDW Coeff of Jamie 13.2 (11.5-15.5) % Plt Count 232 (140-440) K/uL Neut % (Auto) 60.7 (42.0-72.0) % Lymph % (Auto) 31.1 (20-44) % Hale % (Auto) 7.0 (0.0-11.0) % Eos % (Auto) 0.8 (0.0-7.0) % Baso % (Auto) 0.4 (0.0-3.0) % Neut # (Auto) 3.04 (1.7-7.0) K/uL Lymph # (Auto) 1.56 (0.90-2.90) K/uL Hale # (Auto) 0.40 (0.00-0.90) K/UL Eos # (Auto) 0.04 (0.00-0.50) K/uL Baso # (Auto) 0.02 (0.00-0.30) K/uL Abs Immat Gran (auto) 0.00 (0.00-0.30) K/uL Imm/Tot Granulo (auto) 0.0 % SARS-CoV-2 (PCR) Negative SARS-CoV-2 (Negative) Influenza Type A (PCR) Negative PCR FLU A (Negative) Influenza Type B (PCR) Negative PCR FLU B (Negative) RSV (PCR) Negative PCR RSV (Negative) Discharge Plan Discharge Clinical Impression: Wheezing-associated respiratory infection Patient Disposition: Home, Self-Care Condition: Stable Additional Instructions: Rest as much as possible, stay well hydrated. Use nebulizer as needed for symptom control. Take all steroid as prescribed. Follow-up with your primary care provider in 48-72 hours. Return to the emergency department if breathing becomes more difficult. Prescriptions: New (DME) nebulizer and compressor Device See Rx Instructions .Route Qty: 1 0RF Rx Instructions: As directed ipratropium-albuterol 0.5 mg-3 mg(2.5 mg base)/3 mL solution for nebulization 3 ml inhalation Q6H PRNQty: 90 0RF prednisone 20 mg tablet 20 mg PO DIRECTED 9 Days Qty: 18 0RF Rx Instructions: 60 mg p.o. daily for 3 days (3 tablets daily on day 1-3), 40 mg daily for 3 days (2 tablets daily on days 4-6), 20 mg daily for 3 days (1 tablet daily on days 7-9). No Action budesonide 3 mg capsule,delayed,extend.release 0 mg PO albuterol sulfate 90 mcg/actuation HFA aerosol inhaler 2 puff inhalation Q4-6H PRN (Reason: shortness of breath or wheezing) Qty: 6.7 3RF RESEARCH AND DEVELOPMENT RESEARCHER Thyroid 60 mg tablet 60 mg PO DAILY thyroid (pork) [RESEARCH AND DEVELOPMENT RESEARCHER Thyroid] 15 mg tablet 15 mg PO QDAY estradiol 0.025 mg/24 hr patch semiweekly transdermal alprazolam 0.5 mg tablet 0.5 mg PO QDAY PRN (Reason: anxiety) Qty: 10 0RF clindamycin phosphate 1 % lotion 1 applic topical BID 10 Days Qty: 60 1RF progesterone micronized 100 mg capsule 100 mg PO QAM Qty: 90 3RF losartan 100 mg tablet 100 mg PO QDAY Qty: 90 0RF venlafaxine 75 mg capsule,extended release 24hr 150 mg PO DAILY Qty: 180 0RF Follow Up/Referrals: Yanni Argueta PUBLIC SAFETY OFFICER [Primary Care Provider] - Stand Alone Forms: [employer] Info Instructions
[2024-03-06 14:00] VITALS: BP 138/76; PULSE 80; RESP 16
== END 2024-03-06 13:50 | disposition home or self-care (01) ==
PROVIDERS: Emergency Provider Family Medicine; PCP Nurse Practitioner Family
DX: R06.2 Wheezing (principal); J98.8 Other specified respiratory disorders
CPT/HCPCS: 36415; 71046; 85025; 87631; 99284; J7512

== ENCOUNTER 2024-04-02 11:28 | Outpatient (CLI) | payer MEDICARE, SELFPAY | END 2024-04-02 11:29 | disposition home or self-care (01) | LOC: NFLDREF 04-07 03:11 | PROVIDERS: PCP Nurse Practitioner Family; Referring Provider Nurse Practitioner Family; Visit Provider Nurse Practitioner Family | DX: R30.0 Dysuria (principal); N39.0 Urinary tract infection, site not specified | CPT/HCPCS: 87086 ==

== ENCOUNTER 2024-05-26 13:45 | Outpatient (RCR) | payer MEDICARE, SELFPAY ==
--- NOTE | 2024-04-14 15:25 | PT.OPEX ---
PT [facility] Outpatient Eval PT [facility] Outpatient Eval Start: 04/14/24 09:53 Freq: Status: Active Protocol: Document 04/14/24 09:53 MRS (Rec: 04/14/24 15:19 MRS No Response) E-signed By Yana Triana DPT Physical Therapy Outpatient Evaluation Insurance Information Recert Due Date 07/15/24 Insurance Name [employer] Medical Diagnosis R Hip Pain/Bursitis Treating Diagnosis Pain in Hip Right M25.551 Impaired Mobility Z74.9 Muscle Weakness M62.81 Imaging Report Information XR= no jt narrowing Referring MD Zafar Live MD Subjective Preferred Name Paige Subjective Initial subjective: Paige present with c/o of right hip pain that started in 12/2023 when she tried to get up into her 's truck and missed a step. Pain has gradually increased during that time. Walking and sitting are painful. XR= no bony abnormalities. Aggravating factors: walking, sitting, laying on left side Alleviating factors: stretching hip flexors, ice, ibuprofen PMH: back surgery L4-L5, depression Work status: retired Pt goals: To have less pain GLSS access code:[email or web address] Pain Comments at worst 10/10; 4/10 currently Date of Last Physician Visit 04/01/24 Current Work Status Retired Precautions Treatment Precautions/Contraindications Pt having severe acute pain at time of evaluation which limited some objective information Weight Bearing Status Heel Touch Weight Bearing Therapy Limitations/Systems Review Not Limited Objective Range of Motion All motion is currently limited by pain or apprehension of pain. Strength -Knee Ext: R: 5/5, L: 5/5? -Knee Flex: R: 5/5, L: 5/5? -Hip Abd: R: 4-/5, L: 4/5? -Hip Add: R: 5/5, L: 5/5? -Hip Ext: R: 4-/5, L: 4/5? -Hip Flx: R: 4/5, L: 5/5? Palpation Pt with palpable muscle tightness in right ITB with multiple trigger points. Balance & Gait Pt demonstrates antalgic gait pattern with left pelvic shift in attempt to off load R hip Sensation/Reflexes intact Other/Pertinent Objective -JUAN M: positive for tightness - Samy test: positive for tightness - Herrera: positve for tightness and pain Functional Test Performed & Score LEFS= 1380 Assessment Assessment/Impression Patient is a 68 year old male/ female presenting to physical therapy for evaluation and treatment of right hip pain and bursitis of right hip. Patient presents with pain, impaired ROM, impaired strength, and impaired functional mobility especially with sit to stands and gait. These impairments are limiting the patients ability to sit, stand, walk, and sleep. Patient appears motivated to participate in PT and presents with good prognosis to improve mobility, strength, proprioception and return to functional activities with skilled physical therapy intervention. Educated patient on proper form and muscle activation throughout session in order to optimize muscle function and proper body mechanics. Primary Functional Limitations Pain, weakness, impaired ROM, impaired functional mobility and gait Plan of Care Rehabilitation Potential Good Physical Therapy Goals STG's to be met in 2-3 weeks: 1.) Pt will report pain at 8/ 10 or less at worst 2.) Pt will be able to complete 3 sit to stands without pain. 3.) Pt will increase bilateral glute strength to 4/5 or greater to improve stability. LTG's to be met in 6-8 weeks: 1.) Pt will report pain at 5/ 10 or less at worst. 2.) Pt will increase bilateral hip strength to 4+/5 or greater. 3.) Pt will be able to ambulate community distances without pain. 4.) Pt will increase LEFS score by 20 points or more. 5.) Pt will be independent and compliant with HEP Coordination/Communication With Referral Source Treatment Plan/Direct Interventions Joint Mobilization,Manual Therapy,Neuromuscular Re-ed, Therapeutic Activities, Therapeutic Exercises Patient Will Be Discharged From Therapy Completion of LTG(s),Skills Plateau,Independent w/HEP, Independently Progressing Evaluation Billing Untimed Code Treatment Minutes 30 PT Eval No Charge No Complexity Low Certification Information Initial Certification Date 04/14/24 Ending Certification Date 07/15/24 Provider Signature Required Yes Provider Signature Shows Agreement With POC & Medical Necessity Physician NPI Number Write NPI# Here Physician Comment/Change : Physician Signature & Date Requested Please Sign/Date Here
== END 2024-05-26 15:35 | disposition home or self-care (01) ==
PROVIDERS: PCP Nurse Practitioner Family; Visit Provider Orthopaedic Surgery
DX: M25.551 Pain in right hip (principal); M70.71 Other bursitis of hip, right hip; Z51.89 Encounter for other specified aftercare
CPT/HCPCS: 97110; 97140; 97161; 97530